=== PATIENT | female | born 1970 | race African-American/Black ===

== ENCOUNTER 2018-03-19 11:40 | Emergency (ER) | payer BC ==
[~2018-03-19] VITALS: Ht 167.6 cm; Wt 77.1 kg
[2018-03-19 12:30] LABS: URINE BILIRUBIN NEGATIVE (Negative); URINE BLOOD TRACE (Negative); URINE CLARITY SL CLOUDY; URINE COLOR YELLOW; URINE GLUCOSE-RANDOM* NEGATIVE (Negative); URINE KETONES TRACE (Negative); URINE LEUKOCYTES-REFLEX NEGATIVE (Negative); URINE NITRITE-REFLEX POSITIVE (Negative); URINE PROTEIN (DIPSTICK) NEGATIVE (Negative); URINE SPECIFIC GRAVITY >= 1.030 (1.005-1.035); URINE UROBILINOGEN 0.2 E.U./dl (0.2-1.0)
[2018-03-19 12:49] LABS: CASTS None Seen /LPF (None Seen); CRYSTALS None Seen /LPF (None Seen); SQUAMOUS >10 Many /LPF (0-3)
[2018-03-19 12:51] LABS: BACTERIA-REFLEX >30 Many /HPF (None Seen); URINE RBC 0-2 Rare /HPF (0-2)
[2018-03-19] MEDS ORDERED: BP MED (12:52)
[2018-03-19] MEDS ORDERED: LIORESAL 10 MG10 MG PO (14:04)
[2018-03-19] MEDS ORDERED: HYDROCODONE-AP1 EAC6 PO (14:04)
[2018-03-19] MEDS ORDERED: KEFLEX500 M1 PO (14:04)
[2018-03-19 14:10] VITALS: BP 140/75
== END 2018-03-19 14:11 | disposition home or self-care (01) ==
LOC: ER 11:40
PROVIDERS: Physician Assistant
DX: N39.0 Urinary tract infection, site not specified (principal); F17.210 Nicotine dependence, cigarettes, uncomplicated